=== PATIENT | female | born 1970 | race Caucasian/White ===

== ENCOUNTER 2016-11-23 09:26 | Day surgery (SDC) | payer BC ==
[2016-11-23] MEDS ORDERED: Midazolam 1 MG/ML 2 ML SDV IV ONE (10:15)
[2016-11-23] MEDS ORDERED: Propofol 200 MG/20 ML SDV IV ONE (10:15)
[2016-11-23] MEDS ORDERED: Lidocaine 2% 100 MG/5 ML Syringe IVPUSH ONE (10:15)
[2016-11-23] MEDS ORDERED: Lactated Ringers 1,000 ML IV SCH (10:15)
--- NOTE | 2016-11-23 10:46 | PCM.OPNOTE ---
- General Post-Op/Procedure Note Date of Surgery/Procedure: 11/23/16 Operative Procedure(s): c scope with biopsy Findings: descending colon polyp internal hemorrhoids Pre Op Diagnosis: hematochezia Post-Op Diagnosis: descending colon polyp. internal hemorrhoids Anesthesia Technique: CARTER Primary Surgeon: Mejia Jeff Anesthesia Provider: Abiola Livingston Pathology: colon polyp Complications: None Condition: Good Free Text/Narrative:: see dictation [id number]
[2016-11-23 12:03] VITALS: BP 104/56
--- NOTE | 2016-11-23 18:07 | OR ---
DATE OF OPERATION: 11/23/2016 SURGEON: Mejia Jeff MD PROCEDURE PERFORMED: Colonoscopy with cold forceps biopsy. PREOPERATIVE DIAGNOSES: Internal hemorrhoids and descending colon polyp. POSTOPERATIVE DIAGNOSES: Internal hemorrhoids and descending colon polyp. INDICATIONS FOR PROCEDURE: This is a 46-year-old white female, who is referred with the above-mentioned complaints. She was offered and accepted colonoscopy. DESCRIPTION OF PROCEDURE: After an excellent IV sedation was administered, digital rectal exam was performed. No marked abnormality was noted. The flexible colonoscope was inserted and advanced without difficulty to the patient's cecum. The prep was excellent. The following findings were noted: Ascending colon, unremarkable. Transverse colon, unremarkable. Descending colon, unremarkable except for a small polypoid lesion, which was biopsied with cold biopsy forceps. Sigmoid was unremarkable and on retroflexing the scope, there was evidence of internal hemorrhoids which appears to be the cause of her bleeding, a photo was taken. The colon was deflated, scope was removed, the patient tolerated the procedure well, and was taken to recovery in good condition. /[id number] /MODL
== END 2016-11-23 11:34 | disposition home or self-care (01) ==
LOC: FB.SDS 09:26
PROVIDERS: ATTEND Surgery
DX: K63.5 Polyp of colon (principal); K64.8 Other hemorrhoids; I10 Essential (primary) hypertension; K59.00 Constipation, unspecified; F32.9 Major depressive disorder, single episode, unspecified; Z80.3 Family history of malignant neoplasm of breast; Z79.899 Other long term (current) drug therapy; Z91.018 Allergy to other foods; Z98.890 Other specified postprocedural states
CPT/HCPCS: 45380; 81025; 88305; J2250; J2704; J7120